=== PATIENT | female | born 1975 | race Caucasian/White ===

== ENCOUNTER 2017-06-25 10:33 | Emergency (ER) | payer OTHER ==
[2017-06-25 10:39] VITALS: BP 135/75
--- NOTE | 2017-06-25 11:01 | EDM.PDOC ---
ED HPI GENERAL MEDICAL PROBLEM - General Chief Complaint: General Stated Complaint: POST OP PAIN Time Seen by Provider: 06/25/17 10:45 Source of Information: Reports: Patient History Limitations: Reports: No Limitations - History of Present Illness INITIAL COMMENTS - FREE TEXT/NARRATIVE: The patient is a 41-year-old who was seen in the emergency room with chief complaint of pain and itching states that last night she took a pain medicine and became very itchy took a Benadryl didn't help she is here for evaluation and treatment Onset: Gradual Duration: Hour(s):, Getting Worse Location: Reports: Abdomen, Generalized Quality: Reports: Ache, Sharp Severity: Moderate Improves with: Reports: None Worsens with: Reports: Movement Context: Reports: Activity Associated Symptoms: Reports: No Other Symptoms Treatments [employer]: Reports: NSAIDS Abdominal Pain Score (Numeric/FACES): 6 - Related Data Allergies Allergy/AdvReac Type Severity Reaction Status Date / Time No Known Allergies Allergy Verified 06/25/17 10:40 Home Meds: Home Meds Meclizine [Antivert] 1 tab PO TID PRN 08/15/14 [History] Ranitidine HCl [Zantac 75] 150 mg PO Q12H PRN 08/15/14 [History] Fexofenadine [Claudia] 60 mg PO BEDTIME 06/25/17 [History] Hydrocodone/Acetaminophen [Hydrocodon-Acetaminophen 5-325] 2 each PO Q4H PRN [History] Social & Family History - Tobacco Use Smoking Status *Q: Current Some Day Smoker Years of Tobacco use: 15 Second Hand Smoke Exposure: Yes - Alcohol Use Days Per Week of Alcohol Use: 1 (No previous DWI, etc.) Number of Drinks Per Day: 5 (Usually mixed drinks) Total Drinks Per Week: 5 - Recreational Drug Use Recreational Drug Use: No Drug Use in Last 12 Months: No - Living Situation & Occupation Living situation: Reports: , with Family Occupation: Employed ED ROS GENERAL - Review of Systems Review Of Systems: See Below Constitutional: Reports: Other (Itching) HEENT: Reports: No Symptoms Respiratory: Reports: No Symptoms Cardiovascular: Reports: No Symptoms Endocrine: Reports: No Symptoms GI/Abdominal: Reports: Abdominal Pain : Reports: No Symptoms Musculoskeletal: Reports: No Symptoms Skin: Reports: Pruritis Neurological: Reports: No Symptoms Psychiatric: Reports: No Symptoms Hematologic/Lymphatic: Reports: No Symptoms Immunologic: Reports: No Symptoms ED EXAM, GENERAL - Physical Exam Exam: See Below Exam Limited By: No Limitations General Appearance: Alert, WD/WN, No Apparent Distress Ears: Normal External Exam, Normal Canal, Hearing Grossly Normal, Normal TMs Ear Exam: Bilateral Ear: Auricle Normal, Canal Normal, TM normal Nose: Normal Inspection, Normal Mucosa, No Blood Throat/Mouth: Normal Inspection, Normal Lips, Normal Teeth, Normal Gums, Normal Oropharynx, Normal Voice, No Airway Compromise Head: Atraumatic, Normocephalic Neck: Normal Inspection, Supple, Non-Tender, Full Range of Motion Respiratory/Chest: No Respiratory Distress, Lungs Clear, Normal Breath Sounds, No Accessory Muscle Use, Chest Non-Tender Cardiovascular: Normal Peripheral Pulses, Regular Rate, Rhythm, No Edema, No Gallop, No JVD, No Murmur, No Rub GI/Abdominal: Tender (Female) Exam: Deferred Rectal (Female) Exam: Deferred Back Exam: Normal Inspection, Full Range of Motion, NT Extremities: Normal Inspection, Normal Range of Motion, Non-Tender, Normal Capillary Refill, No Pedal Edema Neurological: Alert, Oriented, CN II-XII Intact, Normal Cognition, Normal Gait, Normal Reflexes, No Motor/Sensory Deficits Psychiatric: Normal Affect, Normal Mood Skin Exam: Warm, Dry, Intact, Normal Color, No Rash Lymphatic: No Adenopathy Course - Vital Signs Last Recorded V/S: Last Vital Signs Temp 98.2 F 06/25/17 10:34 Pulse 61 06/25/17 10:34 Resp 16 06/25/17 10:34 BP 135/75 06/25/17 10:34 Pulse Ox 100 06/25/17 10:34 Departure - Departure Time of Disposition: 11:02 Disposition: Home, Self-Care 01 Condition: Good Clinical Impression: History of major abdominal surgery - Discharge Information Referrals: Александр Greenwood MD [Primary Care Provider] - Forms: ED Department Discharge Care Plan Goals: At this time we will change her medications are Ultram 50 mg one tablet every 6 hours plus Benadryl 50 mg every 6 hours patient is to contact the surgeon for further evaluation and treatment and follow-up
== END 2017-06-25 15:07 | disposition home or self-care (01) ==
LOC: LL.ED 10:33
DX: L29.9 Pruritus, unspecified (principal); T40.2X5A Adverse effect of other opioids, initial encounter; R10.84 Generalized abdominal pain; F17.210 Nicotine dependence, cigarettes, uncomplicated; Z90.710 Acquired absence of both cervix and uterus
CPT/HCPCS: 99283

== ENCOUNTER 2021-11-19 22:13 | Emergency (ER) | payer OTHER ==
[2021-11-19 22:20] VITALS: BP 140/80; PULSE 82
[2021-11-19 23:07] LABS: ANION GAP 12.5 meq/L (7-15); CHLORIDE,CL 103 mmol/L (98-107); SODIUM,NA 138 mmol/L (136-145)
[2021-11-19] MEDS ORDERED: methylPREDNISolone Sodium Succinate 125 MG/2 ML SDV IM ONE (23:16)
[2021-11-19] MEDS ORDERED: HYDROmorphone 0.5 MG/0.5 ML Syringe IM ONE (23:17)
[2021-11-19] MEDS ORDERED: Ketorolac 30 MG/ML SDV IM ONE (23:17)
[2021-11-19] MEDS ORDERED: Ondansetron 4 MG Tab.DIS PO ONE (23:18)
== END 2021-11-19 23:45 | disposition home or self-care (01) ==
LOC: LL.ED 22:13
DX: M54.42 Lumbago with sciatica, left side (principal); E66.9 Obesity, unspecified; Z68.41 Body mass index [BMI] 40.0-44.9, adult; Z88.5 Allergy status to narcotic agent
CPT/HCPCS: 36415; 80053; 83735; 85025; 85379; 96372; 99283; A9270-GY; J1170; J1885; J2930